=== PATIENT | male | born 1945 | race Caucasian/White ===

== ENCOUNTER 2023-01-18 21:02 | Observation (INO) | payer OTHER ==
--- OUTSIDE RECORDS SUMMARY | 2023-01-18 21:11 | XMS REPORT | Continuity of Care Document ---
:1945 Author Organization [facility] t Address [address] [facility] [address] [place] [address] Care Team Providers Name Role Phone John Mesa MD Primary Care Physician Problems Condition Condition Condition Status Onset Resolution Last Treating Co mments Source Name Details Category Date Date Treatment Clinician Date CAD CAD Disease Active [facility] (coronary 03-10 [facility] artery artery 00:00: Medical disease) disease) 00 Center Acute Acute Disease Active [facility] post-opera post-opera 14 [facility] kes tive pain tive pain 00:00: Medi bassam 00 Center Postoperat Postoperat Disease Active [facility] dre anemia dre anemia 6-14 Al[facility] kes due to due to 00:00: Medical acute acute 00 Center blood loss blood loss Hypocalcem Hypocalcem Disease Active [facility] S/P CABG x S/P CABG x Disease Active [facility] 00[facility] Coronary [facility]ary Disease [facility] disease disease 00:00: Medical involving involving 00 [facility] [place] 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 deficiency deficiency 00:00: Me dical 00 [place] Essential Essential Disease Active [facility] hypertensi hypertensi 03-04 [place] kes on on 00:00: Medical 00 [place] Type 2 Type 2 Disease Active [facility] St diabetes diabetes 03-04 [facility] mellitus mellitus 00:00: Medica l without without 00 Center complicati complicati ons ons Allergies, Adverse Reactions, Alerts This patient has no known allergies or adverse reactions. Family History Family Member Diagnosis Comments Start Date Stop Date Source Natural father Cancer [facility] Natural father Diabetes [facility] Natural mother Cancer [facility] Natural mother Heart disease [facility] Social History Social Habit Start Date Stop Date Quantity Comments Source Alcohol intake 2016-03-10 2016-03-10 [facility]00 of alcohol [facility] (finding) Cigarettes smoked 2016-03-03 2016-03-[address] [facility] [address] [facility] current (pack per 00:00:00 00:00:00 [facility] day) - Reported Cigarette 2016-03-03 2016-03-[address] [facility] [address] [facility] pack-years 00:00:00 00:00:00 [facility] History of tobacco 1964-03-03 1965-03-03 [address]oker [facility] use 00:00:00 00:00:00 [facility] Sex [birth year] [facility] 00:00:00 00:00:00 [facility] Smoking Status Start Date Stop Date Source Former smoker 2016-03-03 00:00:00 2016-03-03 00:00:00 [facility] Medications Ordered Filled Start Stop Current Ordering Indication Dosage Frequency Signature Comments Components Source Medication Medication Date Date Medication? Clinician (SIG) Name Name atorvastati Yes 20mg QD Take [address] [facility] (LIPITOR) 6-19 by mouth Luke s 20 MG 16:00: daily. Medical tablet 41 [place] metoprolol Yes 25mg QD Take [address] (TOPROL-XL) 6-19 by mouth Luke s 25 MG 24 hr 16:00: daily. Medi bassam tablet 41 Center amLODIPine 2016-0 Yes 10mg QD Take [address] (NORVASC) 6-19 by mouth [facility] 10 MG 16:00: daily. Medical tablet 41 Center omeprazole 2016-0 Yes 20mg QD Take [address] (PRILOSEC) 6-19 by mouth [facility] 20 MG 16:00: daily. Medical capsule 41 Center atorvastati 2016-0 Yes 20mg QD Take [address] [facility] [address] n (LIPITOR) 6-19 by mouth Luke s 20 MG 16:00: daily. Medical tablet 41 Center metoprolol 2016-0 Yes 25mg QD Take [address] (TOPROL-XL) 6-19 by mouth Luke [facility] 25 MG 24 hr 16:00: daily. [facility] bassam tablet 41 Center amLODIPine 2016-0 Yes 10mg QD Take [address] (NORVASC) 6-19 by mouth [facility] 10 MG 16:00: daily. Medical tablet 41 [place] omeprazole 2016-0 Yes 20mg QD Take [address] (PRILOSEC) 6-19 by mouth [facility] 20 MG 16:00: daily. Medical capsule 41 [place] atorvastati 2015-0 Yes 20mg QD Take [address] n (LIPITOR) 6-19 by mouth Luke s 20 MG 16:00: daily. Medical tablet 41 [place] metoprolol 2016-0 Yes 25mg QD Take [address] (TOPROL-XL) 6-19 by mouth Luke [facility] 25 MG 24 hr 16:00: daily. [facility] bassam tablet [address] [place] [address] amLODIPine 2016-0 Yes 10mg QD Take [address] (NORVASC) 6-19 by mouth [facility] 10 MG 16:00: daily. Medical tablet 41 Center omeprazole 2016-0 Yes 20mg QD Take [address] (PRILOSEC) 6-19 by mouth [facility] 20 MG 16:00: daily. Medical capsule 41 [place] atorvastati 2016-0 Yes 20mg QD Take [address] n (LIPITOR) 6-19 by mouth Luke [facility] 20 MG 16:00: daily. Medical tablet 41 [place] metoprolol 2016-0 Yes 25mg QD Take [address] (TOPROL-XL) 6-19 by mouth Luke s 25 MG 24 hr 16:00: daily. Medi bassam tablet 41 [place] amLODIPine 2016-0 Yes 10mg QD Take [address] (NORVASC) 6-19 by mouth [facility] 10 MG 16:00: daily. [facility] tablet [address] [place] [address] omeprazole 2016-0 Yes 20mg QD Take [address] (PRILOSEC) 6-19 by mouth [facility] 20 MG 16:00: daily. [facility] capsule [address] [place] [address] atorvastati 2016-0 Yes 20mg QD Take [address] [facility] n (LIPITOR) 6-19 by mouth Luke s 20 MG 16:00: daily. [facility] tablet [address] [place] [address] metoprolol 2016-0 Yes 25mg QD Take [address] (TOPROL-XL) 6-19 by mouth Luke [facility] 25 MG 24 hr 16:00: daily. [facility] tablet [address] [place] [address] amLODIPine 0 Yes 10mg QD Take [address] (NORVASC) 6-19 by mouth [facility] 10 MG 16:00: daily. [facility] tablet [address] [place] [address] omeprazole 2016-0 Yes 20mg QD Take [address] (PRILOSEC) 6-19 by mouth [facility] 20 MG 16:00: daily. [facility] capsule [address] [place] [address] Procedures This patient has no known procedures. Results This patient has no known results.
[2023-01-18 21:46] VITALS: BMI 26.2
[2023-01-18] MEDS ORDERED: ONDANSETRON 4 MG/2 ML VIAL IV PRN (22:10)
[2023-01-18 22:37] LABS: Absolute Lymphocytes (CBC) 2.7 K/uL (0.7-4.9); Hematocrit 38.5 % (39.6-49.0); Lymphocytes % 17.6 % (15.3-44.8); MCV 88.8 fL (80-100); MPV 8.1 fL (7.6-11.3); RBC Red Blood Cell Count 4.34 M/uL (4.33-5.43)
[2023-01-18 22:57] LABS: Albumin 2.5 g/dL (3.4-5.0); Bilirubin Total 1.2 mg/dL (0.2-1.0); Magnesium 2.1 mg/dL (1.6-2.4); Potassium 4.5 mEq/L (3.5-5.1); Protein, Total 8.3 g/dL (6.4-8.2)
[2023-01-18] MEDS: NA CHLORIDE 0.9% 1,000 ML IV SCH (23:31)
[2023-01-19] MEDS ORDERED: Levofloxacin500mg IV 500 MG/100 ML BAG IV SCH
[2023-01-19 02:18] LABS: Specific Gravity 1.013 (1.005-1.030); Urine Bacteria None Seen /HPF (<20); Urine Bilirubin NEGATIVE (Negative); Urine Blood Negative (Negative); Urine Clarity Clear (Clear); Urine Color Yellow (Yellow); Urine Glucose NEGATIVE (Negative); Urine Mucus 2+ /HPF (None Seen); Urine Protein TRACE (Negative); Urine RBC <5 /HPF (None Seen); Urine Urobilinogen Normal (Normal); Urine pH 5.5 (5.0-7.0)
--- NOTE | 2023-01-19 07:10 | HP ---
Date of Admission: 01/18/2023 Chief Complaint: Abdominal pain, nausea, vomiting. History Of Present Illness: This is a 77-year-old pleasant male patient, who came into office today with 2 weeks' history of not feeling good. The patient reports that he started to feel tired about 2 weeks ago and few days later, he felt like he needed to take Z-Yuri because he was not feeling well a nd he did take Z-Yuri and he did not contact me for that or any other symptoms until today, so I am no t sure where he got the Z-Yuri from, but last dose of the Z-Yuri was on 01/09/2023 and the same day he went on a cruise. The patient says that day after he went on the cruise, he started to have nausea, vomiting, and he has been having poor appetite in the last 2 weeks. He came home on 01/15/2023 and h ad 2 more episodes of nausea, vomiting. With each episode, he had vomiting several times on 2 separa te days. He started to have some right-sided abdominal pain and describes more like discomfort more than pain as he describes. Denies any fever, chills. No constipation or diarrhea. No blood in urin e or stool. His appetite still continues to be very poor, for example today. For the whole day, he had only 2 cups of Jell-O. After all these complaints, at office he was evaluated and decision was m josiah to admit him to hospital for further evaluation and management of these problems. Allergies: NO KNOWN ALLERGIES. Medications: Amlodipine 10 mg daily, aspirin 81 mg daily, atorvastatin 80 mg daily in the evening, f amotidine 40 mg daily at bedtime, metoprolol succinate 50 mg daily. Review of Systems: GI: As mentioned above. Constitutional: As mentioned above. All other systems reviewed and negative. Past Medical History: Significant for allergic rhinitis, type 2 diabetes mellitus, hypertension, mix ed hyperlipidemia, gastroesophageal reflux disease, diverticulosis, benign prostatic hypertrophy, cor onary artery disease. Past Surgical History: Coronary artery bypass surgery in February 2016, back surgery in 1994. Family History: Father had diabetes. Mother, coronary artery disease. Brother, hypertension. Social History: Negative for smoking. Use of alcohol 1-2 beers a day. Physical Examination: Vital Signs: At office; initial blood pressure at office was 99/62, repeat blood pressure was 118/70 , pulse 90, temperature 97.9, respiratory rate 15, , height 72 inches. General: Awake, alert, oriented, not in distress. HEENT: Head atraumatic, normocephalic. Conjunctivae nonerythematous. Sclerae white. Mouth, no thr ush or edema noted. Ears/Nose, no mass, lesion, discharge noted. Neck: Supple. No JVD, lymph nodes, bruit, thyromegaly noted. Lungs: Bilateral good equal air entry. Clear to auscultation. No rhonchi. No rales. Heart: Normal heart sounds, no murmur or gallop. Abdomen: Soft. Bowel sounds normal. No guarding, rigidity, distention. Presence of some guarding noted in the lower abdomen in the suprapubic area. Extremities: No leg edema. No calf tenderness. Skin: No rash, ulcer, cellulitis. Lymphatics: No lymph node enlargement in neck, supraclavicular, infraclavicular region. Neuro: No focal neurological deficit. Chest: Unremarkable. External Genitalia: Deferred. Rectal: Deferred. Laboratory Data: Urinalysis was negative. WBC 15.10, hemoglobin 12.7, platelets 294. Sodium 137, p otassium 4.5, chloride 105, bicarb 27, BUN 17, creatinine 1.06, glucose 128, total bilirubin 1.2, AST 105, ALT 113, alkaline phosphatase 538. Procalcitonin 0.91. Impression: 1.Abdominal pain. 2.Abnormal liver function tests. 3.Coronary artery disease. 4.Hypertension. 5.Mixed hyperlipidemia. 6.Type 2 diabetes mellitus. 7.Gastroesophageal reflux disease. 8.Diverticulosis. 9.Benign prostatic hypertrophy. Plan: Admit the patient to hospital for further evaluation and management of this problem. The fransico ent is appropriate for inpatient and is expected to spend 2 midnights in the hospital. DVT prophylax is will be given using Lovenox. We will start empiric antibiotics, Levaquin 500 mg daily. Chest x-r ay was done today after admission and that was normal. Plan is to do CT scan of the abdomen and abdo kevin ultrasound, and different possible diagnosis causing abdominal pain discussed with the patient and further plan of treatment will depend on his CAT scan and abdominal ultrasound results. For hype rtension, we will continue antihypertensive medication per order and we will continue his statin ther apy for hyperlipidemia. He takes aspirin 81 mg daily at home, which will be continued. MARYAM/MODL Voice ID: [id number]
--- NOTE | 2023-01-19 07:50 | RAD REPORT ---
EXAM DESCRIPTION: US - Abdomen Exam Complete - 01/19/2023 6:11 am CLINICAL HISTORY: abd pain COMPARISON: Chest Pa And Lat (2 Views) dated 01/18/2023 TECHNIQUE: Sonographic grayscale and color flow images of the abdomen were obtained. FINDINGS: The liver is mildly enlarged, measuring 19.4 centimeter in long axis. Numerous hypoattenua ting parenchymal focal lesions, may represent numerous metastases or developing liver abscesses. Pancreas is obscured by gas. The gallbladder demonstrates small echogenic nonshadowing stones and small volume sludge. Gallbladder wall is thickened, measuring 4-5 millimeter. Suggestion of mild wall hyperemia. Trace pericholecysti c fluid, and mild free ascites. The common bile duct is normal in caliber, 4 millimeter. No intrahepa tic biliary ductal dilation. Spleen is normal in size, without focal lesions. Kidneys are normal in size with persistent lobulations. No hydroureteronephrosis or echogenic s hadowing calculi. IMPRESSION: Numerous hepatic hypoattenuating focal lesions, may represent numerous metastases or dev eloping liver abscesses. Mild free ascites. Gallbladder wall thickening, and suggestion of wall hyperemia. Ongoing cholecystitis should be consid ered. Small nonshadowing gallstones and small volume sludge. The findings were communicated to John Mesa on 01/19/2023 at 07:44 hours.
[2023-01-19] MEDS ORDERED: ENOXAPARIN 40 MG/0.4 ML SQ SCH (09:00)
[2023-01-19] MEDS ORDERED: AMLODIPINE 10 MG TAB PO SCH (09:00)
[2023-01-19] MEDS: NA CHLORIDE 0.9% 1,000 ML IV SCH (09:00)
[2023-01-19] MEDS ORDERED: ASPIRIN EC 81 MG TAB PO SCH (09:00)
[2023-01-19] MEDS ORDERED: METOPROLOL XL 50 MG TAB PO SCH (09:00)
[2023-01-19] MEDS ORDERED: NA CHLORIDE 0.9% 1,000 ML IV SCH (09:24)
--- NOTE | 2023-01-19 09:31 | RAD REPORT ---
EXAM DESCRIPTION: CT - Abdomen Pelvis W/Wo Contrast - 01/19/2023 8:36 am CLINICAL HISTORY: abd pain COMPARISON: No comparisons TECHNIQUE: Thin cut axial CT imaging of the abdomen and pelvis was performed following intravenous a dministration of 95 mL Isovue 300. Multiplanar reformats were generated and reviewed. All CT scans are performed using dose optimization technique as appropriate and may include automated exposure control or mA/KV adjustment according to patient size. FINDINGS: No suspicious findings in the lung bases. Calcific left pleural plaque, which may relate t o asbestos exposure. There is a hypoenhancing pancreatic body mass measuring 2.1 x 1.5 centimeter in greatest axial dimens ions. This is best appreciated on the portal venous phase, series 501 images 31-32. Proximal to this, there is pronounced main pancreatic duct dilation, measuring 1 centimeter in caliber. Innumerable hypoattenuating focal hepatic lesions, the largest involves the left liver lobe, measurin g 2.8 x 2.6 centimeter. The spleen and adrenal glands show no suspicious findings. Gallbladder shows mild mucosal hyperenhancement. Small layering echogenic stones. Mild pericholecysti c fat stranding. Symmetric renal function is seen with no hydronephrosis or suspicious renal mass. Moderate-sized hiatal hernia. No dilated bowel loops or bowel wall thickening. Colonic diverticulosis is noted. Moderate to advanced atherosclerotic calcifications of the abdominal aorta. No free air, o r inflammatory stranding. Trace free ascites. No other suspicious masses. Mildly prominent upper retr operitoneal and peripancreatic lymph nodes, the largest is present just superior and to the right of the pancreatic body margin, measuring 1.7 x 1.6 centimeter. Small inguinal hernias containing fat, la rger on the right. . The urinary bladder is without significant finding. No suspicious bony findings. IMPRESSION: Gallbladder mucosal hyperenhancement and pericholecystic fat stranding, raising concern for acute cholecystitis. Small gallstones. The pancreatic body 2.1 centimeter mass, with more proximal main pancreatic duct dilation. This beverly rning for malignancy. Innumerable hypoattenuating focal hepatic lesions concerning for metastatic disease. Mildly prominent peripancreatic and retroperitoneal metastatic nodes. Trace free ascites. The findings were communicated to John Meas on 01/19/2023 at 09:16 hours.
[2023-01-19] MEDS: FAMOTIDINE 20 MG TAB PO SCH ×2 (09:54→20:18)
[2023-01-19 16:17] VITALS: BP 147/77; TEMP 98.1
--- NOTE | 2023-01-19 19:29 | RAD REPORT ---
EXAM DESCRIPTION: RAD - Chest Pa And Lat (2 Views) - 01/18/2023 10:43 pm CLINICAL HISTORY: Volume depletion. TECHNIQUE: Chest x-ray 2 views, PA and lateral. COMPARISON: None. FINDINGS: Heart: Normal size and configuration. Mediastinal Structures: There is atherosclerosis of the thoracic aorta. Poststernotomy and CABG changes are demonstrated. Lung Nixon: Clear for active infiltrates. Pulmonary Vascularity: Normal. Pleural Space: No active disease. Bony Structures: Normal. IMPRESSION: Normal study. Electronically signed by: Juarez Thomson MD 01/18/2023 10:55 PM CDT Due to temporary technical issues with the PACS/Fluency reporting system, reports are being signed by the in house radiologists without review as a courtesy to insure prompt reporting. The interpreting radiologist is fully responsible for the content of the report.
== END 2023-01-19 20:35 | disposition home or self-care (01) ==
LOC: 2ND 21:02 → INTOOBSV 21:02
PROVIDERS: ADMIT Internal Medicine; ATTEND Internal Medicine
DX: R10.9 Unspecified abdominal pain (principal); R79.89 Other specified abnormal findings of blood chemistry; I25.10 Atherosclerotic heart disease of native coronary artery without angina pectoris; I10 Essential (primary) hypertension; E78.2 Mixed hyperlipidemia; E11.9 Type 2 diabetes mellitus without complications; K21.9 Gastro-esophageal reflux disease without esophagitis; K57.90 Diverticulosis of intestine, part unspecified, without perforation or abscess without bleeding; N40.0 Benign prostatic hyperplasia without lower urinary tract symptoms
CPT/HCPCS: 87088; 85025; 81001; 87086; 36415; 83735; 80053; 84145; 74178; 71046; 76700; Q9967; J1650; J7030 ×2; 87077; 87186